=== PATIENT | female | born 1955 | race Caucasian/White ===

== ENCOUNTER 2017-02-06 08:42 | Day surgery (SDC) | payer BC ==
[~2017-02-06 08:42] MED LIST: RINGER'S SOLUTION,LACTATED 1,000 ML IV PRN
[2017-02-06] MEDS ORDERED: RINGER'S SOLUTION,LACTATED 1,000 ML IV ONE (09:26)
[2017-02-06] MEDS ORDERED: LIDOCAINE HCL/EPINEPHRINE 50 ML VIAL IJ ONE (10:20)
[2017-02-06] MEDS ORDERED: HYDROmorphone HCL 2 MG/ML VIAL IV PRN (11:51)
--- NOTE | 2017-02-06 12:03 | OR ---
Operative Report - Dictated Report Narrative: DATE OF PROCEDURE: 02/06/2017 INDICATION: 61-year-old female with postmenopausal bleeding and endometrial thickening stripe on pelvic ultrasound PREOPERATIVE DIAGNOSIS: Postmenopausal bleeding, thickened endometrial stripe on ultrasound POSTOPERATIVE DIAGNOSIS: Same with uterine polyps PROCEDURE: Hysteroscopy , Polypectomy SURGEON: Bill Martin D.O. [employer]CIAL [employer] EDITOR: None ANESTHESIA: IV sedation converted to general anesthesia ESTIMATED BLOOD LOSS: minimal URINE OUTPUT: not recorded FLUID REPLACEMENT: 300 mL FINDINGS: Long fingerlike polyp at the fundus, broad-based polyp on the right wall of the uterine cavity from the 9 to 11 o'clock position, otherwise normal- appearing uterine cavity. SPECIMEN(S): polyps TECHNIQUE: The patient was taken to the operating room and placed in dorsal lithotomy position after adequate IV sedation was obtained. After sterile prep and drape, the anterior lip of the cervix was grasped with a long Allis clamp. The patient did not tolerate manipulation of her cervix and required undergoing general anesthesia before we can proceed further with the case. Because of the depth of the vagina and patient's body habitus the cervical os could only be entered with the hysteroscope. Therefore we did not do an endometrial curettage. The 5 mm hysteroscope was inserted into the uterine cavity with findings as noted above. Using the operative hysteroscope, the base of the uterine polyps were transected with hysteroscopic scissors. The polyps were removed with hysteroscopic graspers. The hysteroscope was reinserted noting entire removal of the polyps. Sponge, lap, instrument, needle count correct x 2. DISPOSITION: The patient was transferred to the post anesthesia care unit in stable condition.
[2017-02-06] MEDS ORDERED: MORPHINE SULFATE 2 MG/ML DISP.SYRIN IV PRN (12:53)
[2017-02-06] MEDS ORDERED: oxyCODONE HCL/ACETAMINOPHEN 1 TAB TABLET PO ONE (13:15)
[2017-02-06] MEDS ORDERED: IBUPROFEN 800 MG TABLET PO ONE (13:15)
[2017-02-06 17:15] VITALS: BP 128/82
== END 2017-02-06 08:43 | disposition home or self-care (01) ==
LOC: AMB 08:42
PROVIDERS: ATTEND Obstetrics & Gynecology
PROC: 0UB98ZX Excision of Uterus, Via Natural or Artificial Opening Endoscopic, Diagnostic (ICD-10-PCS; principal; 2017-02-06 10:15)
DX: N84.0 Polyp of corpus uteri (principal); N95.0 Postmenopausal bleeding; I10 Essential (primary) hypertension; E11.9 Type 2 diabetes mellitus without complications; E78.5 Hyperlipidemia, unspecified; E66.01 Morbid (severe) obesity due to excess calories; Z68.42 Body mass index [BMI] 45.0-49.9, adult; Z87.891 Personal history of nicotine dependence